=== PATIENT | female | born 1940 | race Caucasian/White ===

== ENCOUNTER → 2017-07-18 | Outpatient (CLI) | payer MEDICARE, BC | END | disposition home or self-care (01) | LOC: HKI 11:27 | DX: M17.11 Unilateral primary osteoarthritis, right knee (principal) | CPT/HCPCS: 20610 ==

== ENCOUNTER → 2017-10-08 | Outpatient (CLI) | payer MEDICARE, BC | END | disposition home or self-care (01) | LOC: HKI 14:47 | DX: M17.11 Unilateral primary osteoarthritis, right knee (principal); Z88.0 Allergy status to penicillin | CPT/HCPCS: 20610 ==

== ENCOUNTER → 2017-12-09 | Outpatient (CLI) | payer MEDICARE, BC | END | disposition home or self-care (01) | LOC: HKI 10:56 | DX: M25.562 Pain in left knee (principal); M25.561 Pain in right knee; Z96.652 Presence of left artificial knee joint | CPT/HCPCS: 73562; 73562-50 ==

== ENCOUNTER → 2018-01-13 | Outpatient (CLI) | payer MEDICARE, BC | END | disposition home or self-care (01) | LOC: HKI 11:03 | DX: M17.0 Bilateral primary osteoarthritis of knee (principal) | CPT/HCPCS: 20610 ==

== ENCOUNTER → 2018-03-03 | Outpatient (CLI) | payer MEDICARE, BC | END | disposition home or self-care (01) | LOC: HKI 11:33 | DX: S82.002D Unspecified fracture of left patella, subsequent encounter for closed fracture with routine healing (principal); X58.XXXD Exposure to other specified factors, subsequent encounter | CPT/HCPCS: G0463 ==

== ENCOUNTER → 2018-03-17 | Outpatient (CLI) | payer MEDICARE, BC | END | disposition home or self-care (01) | LOC: HKI 12:06 | DX: M25.562 Pain in left knee (principal); Z96.652 Presence of left artificial knee joint | CPT/HCPCS: 73564; 73564-50 ==

== ENCOUNTER → 2018-05-02 | Outpatient (CLI) | payer MEDICARE, BC | END | disposition home or self-care (01) | LOC: HKI 13:13 | DX: M17.11 Unilateral primary osteoarthritis, right knee (principal); Z88.0 Allergy status to penicillin | CPT/HCPCS: 20610 ==

== ENCOUNTER → 2018-07-07 | Outpatient (CLI) | payer MEDICARE, BC | END | disposition home or self-care (01) | LOC: HKI 11:45 | DX: Z01.818 Encounter for other preprocedural examination (principal); Z96.651 Presence of right artificial knee joint | CPT/HCPCS: G0463 ==

== ENCOUNTER 2018-07-17 05:54 | Observation (INO) | payer MEDICARE, BC ==
[2018-07-17] MEDS ORDERED: BUPIVACAINE 0.75%/DEXT (SPINAL) 2 ML INJ (07:00)
[2018-07-17] MEDS ORDERED: DESFLURANE 15 MIN (07:00)
[2018-07-17] MEDS ORDERED: LIDOCAINE 2% (SDV) 5 ML INJ (07:00)
[2018-07-17] MEDS ORDERED: SUGAMMADEX SODIUM 200 MG/2 ML VIAL IV (07:00)
[2018-07-17] MEDS: ACETAMINOPHEN 1000MG/100ML IV 100 ML IVPB (07:11)
[2018-07-17] MEDS: DEXAMETHASONE 4 MG/ML 1 ML INJ IV (07:11)
[2018-07-17] MEDS: LACTATED RINGER'S 1,000 ML IV* ×3 (07:11→09:08)
[2018-07-17] MEDS: POLYMYXIN B 500000 UNIT INJ (07:27)
[2018-07-17] MEDS: BACITRACIN 50000 UNITS INJ (07:28)
[2018-07-17] MEDS: TRANEXAMIC ACID 1GM/100ML(PMX) 100 ML PRE-OP X1 IVPB ×2 (07:29→07:30)
[2018-07-17] MEDS ORDERED: CEFAZOLIN 1 GM INJ (07:33)
[2018-07-17] MEDS ORDERED: PROPOFOL 20 ML (07:33)
[2018-07-17] MEDS ORDERED: GLYCOPYRROLATE 0.4 MG INJ (07:33)
[2018-07-17] MEDS ORDERED: ROCURONIUM 50 MG INJ (07:33)
[2018-07-17] MEDS ORDERED: DEXAMETHASONE 4 MG/ML 5 ML INJ (07:34)
[2018-07-17] MEDS ORDERED: ONDANSETRON 4 MG INJ (07:34)
[2018-07-17] MEDS ORDERED: FENTAnyl 50 MCG/ML VIAL (07:34)
[2018-07-17] MEDS ORDERED: MIDAZOLAM 1 MG/ML 2 ML INJ (07:34)
[2018-07-17] MEDS ORDERED: morphine SULFATE/PF (10 MG/10 ML) INJ (07:37)
[2018-07-17] MEDS ORDERED: ROPIVACAINE 0.5 % 30 ML VIAL (08:33)
[2018-07-17] MEDS ORDERED: MEPERIDINE 25 MG INJ IV (09:00)
[2018-07-17] MEDS ORDERED: LABETALOL HCL 20MG INJ IV (09:00)
[2018-07-17] MEDS ORDERED: KETOROLAC 15 MG INJ IV ×2 (09:00→09:30)
[2018-07-17] MEDS ORDERED: ALBUTEROL 0.083% (NEB) 2.5 MG/3 ML AMP HHN (09:00)
[2018-07-17] MEDS ORDERED: IPRATROPIUM (NEB) 0.5 MG/2.5 ML AMP HHN (09:00)
[2018-07-17] MEDS ORDERED: FENTAnyl 50 MCG/ML VIAL IV ×3 (09:00)
[2018-07-17] MEDS ORDERED: HYDROmorphONE 1 MG/5 ML IV SYRINGE IV ×3 (09:00)
[2018-07-17] MEDS ORDERED: OXYCODONE/ACETAMINOPHEN (5/325) TAB PO ×2 (09:00)
[2018-07-17] MEDS ORDERED: HYDROmorphONE 0.5 MG/0.5 ML SYG IV ×2 (09:00)
[2018-07-17] MEDS ORDERED: ONDANSETRON 4 MG INJ IV ×2 (09:00)
[2018-07-17] MEDS ORDERED: NALBUPHINE HCL (10 MG/1 ML) INJ IV (09:00)
[2018-07-17] MEDS ORDERED: MIDAZOLAM 1 MG/ML 2 ML INJ IV (09:00)
[2018-07-17] MEDS ORDERED: TRIMETHOBENZAMIDE 100 MG/ML VIAL IM ×2 (09:00)
[2018-07-17] MEDS ORDERED: EPHEDrine SULFATE 50 MG/5 ML SYG IV (09:00)
[2018-07-17] MEDS ORDERED: NALOXONE (0.4 MG/ML) INJ IV (09:00)
[2018-07-17] MEDS ORDERED: ZOLPIDEM 5 MG TAB PO (09:00)
[2018-07-17] MEDS ORDERED: KETOROLAC 30 MG INJ IV (09:00)
[2018-07-17] MEDS ORDERED: DIPHENHYDRAMINE 50 MG INJ IV (09:00)
[2018-07-17] MEDS ORDERED: oxyCODONE 5 MG TAB PO ×2 (09:30)
[2018-07-17] MEDS ORDERED: MAGNESIUM HYDROXIDE 30ML CUP PO (09:30)
[2018-07-17] MEDS ORDERED: NACL 0.9% 3 ML SYG IV (09:30)
[2018-07-17] MEDS: hydrALAzine 20 MG INJ IV (10:26)
[2018-07-17] MEDS: CLINDAMYCIN 600 MG/D5W (PMX) 50 ML IVPB (10:41)
[2018-07-17] MEDS: TRANEXAMIC ACID 1GM/100ML(PMX) 100 ML INTRA-OP X1 IVPB (10:42)
[2018-07-17] MEDS: ACETAMINOPHEN 500 MG TAB PO (10:42)
[2018-07-17] MEDS: LACTATED RINGER'S 1,000 ML IV ×2 (11:24→21:50)
[2018-07-17] MEDS: GABAPENTIN 100 MG CAP PO ×2 (13:00→20:58)
[2018-07-17] MEDS: DICLOFENAC SODIUM 1% GEL 100 GM TUBE TP ×3 (13:00→20:58)
[2018-07-17] MEDS: DIPHENHYDRAMINE 50 MG INJ IV ×2 (13:23→22:11)
[2018-07-17] MEDS: CLINDAMYCIN 900 MG/D5W (PMX) 50 ML IVPB ×2 (14:37→22:11)
[2018-07-17] MEDS: DONEPEZIL 10 MG TAB PO (20:34)
[2018-07-17] MEDS: RANITIDINE 150 MG TAB PO (20:34)
[2018-07-17] MEDS: MELATONIN 5 MG TABLET PO (20:34)
[2018-07-17] MEDS: ATORVASTATIN 40 MG TAB PO (20:34)
[2018-07-18] MEDS: LACTATED RINGER'S 1,000 ML IV ×2 (01:24→16:02)
[2018-07-18 05:16] LABS: ADD MAN DIFF? NO
[2018-07-18 05:18] LABS: BASOPHILS % 0.1 % (0.0-2.0); HEMATOCRIT 34.7 % (37.0-47.0); HEMOGLOBIN 10.8 g/dl (12.0-16.0); LYMPHOCYTES # 0.9 10^3/ul (0.8-2.9); LYMPHOCYTES % 9.1 % (15.0-51.0); MEAN CORPUSCULAR HEMOGLOBIN 29.4 pg (29.0-33.0); MEAN CORPUSCULAR HGB CONC 31.1 g/dl (32.0-37.0); MEAN CORPUSCULAR VOLUME 94.6 fl (82.0-101.0); MEAN PLATELET VOLUME 10.8 fl (7.4-10.4); MONOCYTE # 0.9 10^3/ul (0.3-0.9); MONOCYTES % 9.3 % (0.0-11.0); NEUTROPHIL # 8.1 10^3/ul (1.6-7.5); NEUTROPHILS % 81.2 % (39.0-77.0); PLATELET COUNT 188 10^3/UL (140-415); RED BLOOD COUNT 3.67 10^6/ul (4.20-5.40); RED CELL DISTRIBUTION WIDTH 14.9 % (11.5-14.5)
[2018-07-18 05:18] LABS: WHITE BLOOD COUNT 9.9 10^3/ul (4.8-10.8)
[2018-07-18] MEDS: CLINDAMYCIN 900 MG/D5W (PMX) 50 ML IVPB (05:27)
[2018-07-18 05:47] LABS: ANION GAP 7 (5-13); BLOOD UREA NITROGEN 22 mg/dl (7-20); CALCIUM 9.3 mg/dl (8.4-10.2); CARBON DIOXIDE 27 mmol/L (21-31); CHLORIDE 105 mmol/L (97-110); CREATININE 0.79 mg/dl (0.44-1.00); GLUCOSE 151 mg/dl (70-220); POTASSIUM 4.9 mmol/L (3.5-5.1); SODIUM 139 mmol/L (135-144)
[2018-07-18] MEDS ORDERED: PANTOPRAZOLE (EC) 40 MG TAB PO (06:00)
[2018-07-18] MEDS: ASPIRIN (EC) 81 MG TAB PO ×2 (08:55→20:49)
[2018-07-18] MEDS: CELECOXIB 100 MG CAP PO ×2 (08:55→20:48)
[2018-07-18] MEDS: DOCUSATE SODIUM 100 MG CAP PO ×2 (08:55→20:48)
[2018-07-18] MEDS: MEMANTINE 10 MG TAB PO (08:55)
[2018-07-18] MEDS: ESCITALOPRAM 10 MG TAB PO (08:56)
[2018-07-18] MEDS: METOPROLOL (XL) 25 MG TAB PO (08:56)
[2018-07-18] MEDS: GABAPENTIN 100 MG CAP PO ×3 (08:56→20:50)
[2018-07-18] MEDS: DICLOFENAC SODIUM 1% GEL 100 GM TUBE TP ×4 (08:57→21:00)
[2018-07-18] MEDS: ASCORBIC ACID 500 MG TAB PO (08:57)
[2018-07-18] MEDS ORDERED: OXYBUTYNIN (XL) 5 MG TAB PO (09:00)
[2018-07-18] MEDS ORDERED: ONDANSETRON 4 MG INJ IV (09:30)
[2018-07-18] MEDS: [UNRECOGNIZED DRUG - OTHER] PO (09:37)
[2018-07-18] MEDS: RANITIDINE 150 MG TAB PO (20:48)
[2018-07-18] MEDS: MELATONIN 5 MG TABLET PO (20:49)
[2018-07-18] MEDS: DONEPEZIL 10 MG TAB PO (20:49)
[2018-07-18] MEDS: ATORVASTATIN 40 MG TAB PO (20:49)
[2018-07-18] MEDS: AMLODIPINE 5 MG TAB PO (20:49)
[2018-07-19 05:55] LABS: ADD MAN DIFF? NO
[2018-07-19 06:04] LABS: BASOPHILS % 0.3 % (0.0-2.0); EOSINOPHILS # 0.1 10^3/ul (0.0-0.5); EOSINOPHILS % 0.8 % (0.0-7.0); HEMATOCRIT 33.9 % (37.0-47.0); HEMOGLOBIN 10.6 g/dl (12.0-16.0); LYMPHOCYTES # 1.8 10^3/ul (0.8-2.9); LYMPHOCYTES % 28.1 % (15.0-51.0); MEAN CORPUSCULAR HGB CONC 31.3 g/dl (32.0-37.0); MEAN CORPUSCULAR VOLUME 92.9 fl (82.0-101.0); MEAN PLATELET VOLUME 10.7 fl (7.4-10.4); MONOCYTE # 0.6 10^3/ul (0.3-0.9); MONOCYTES % 9.3 % (0.0-11.0); NEUTROPHILS % 61.2 % (39.0-77.0); PLATELET COUNT 177 10^3/UL (140-415); RED BLOOD COUNT 3.65 10^6/ul (4.20-5.40); RED CELL DISTRIBUTION WIDTH 15.2 % (11.5-14.5)
[2018-07-19 06:04] LABS: WHITE BLOOD COUNT 6.5 10^3/ul (4.8-10.8)
[2018-07-19] MEDS: PANTOPRAZOLE (EC) 40 MG TAB PO (06:14)
[2018-07-19 06:36] LABS: ANION GAP 5 (5-13); BLOOD UREA NITROGEN 19 mg/dl (7-20); CALCIUM 9.3 mg/dl (8.4-10.2); CARBON DIOXIDE 32 mmol/L (21-31); CHLORIDE 106 mmol/L (97-110); GLUCOSE 88 mg/dl (70-220); POTASSIUM 3.9 mmol/L (3.5-5.1); SODIUM 143 mmol/L (135-144)
[2018-07-19] MEDS: DOCUSATE SODIUM 100 MG CAP PO (09:10)
[2018-07-19] MEDS: [UNRECOGNIZED DRUG - OTHER] PO (09:10)
[2018-07-19] MEDS: ESCITALOPRAM 10 MG TAB PO (09:10)
[2018-07-19] MEDS: GABAPENTIN 100 MG CAP PO (09:10)
[2018-07-19] MEDS: MEMANTINE 10 MG TAB PO (09:10)
[2018-07-19] MEDS: METOPROLOL (XL) 25 MG TAB PO (09:11)
[2018-07-19] MEDS: ASCORBIC ACID 500 MG TAB PO (09:11)
[2018-07-19] MEDS: CELECOXIB 100 MG CAP PO (09:11)
[2018-07-19] MEDS: DICLOFENAC SODIUM 1% GEL 100 GM TUBE TP (09:12)
[2018-07-19] MEDS: ASPIRIN (EC) 81 MG TAB PO (10:38)
[2018-07-19] MEDS: LACTATED RINGER'S 1,000 ML IV (11:20)
== END 2018-07-19 12:05 ==
LOC: REC 05:54 → MS1 10:42
DX: M17.11 Unilateral primary osteoarthritis, right knee (principal); I10 Essential (primary) hypertension; I25.2 Old myocardial infarction; K21.9 Gastro-esophageal reflux disease without esophagitis; E78.00 Pure hypercholesterolemia, unspecified; F03.90 Unspecified dementia, unspecified severity, without behavioral disturbance, psychotic disturbance, mood disturbance, and anxiety
CPT/HCPCS: 27447; 73560; 80048; 85025; 87081; 88304; 88311; 97110; 97116; 97162; 97530; 99217